=== PATIENT | male | born 1965 | race Caucasian/White ===

== ENCOUNTER → 2023-11-27 10:58 | Outpatient (REF) | payer OTHER, SELFPAY | LOC: RAD 10:58 | PROVIDERS: ATTENDING PHYSICIAN Nurse Practitioner Family | DX: M54.50 Low back pain, unspecified (principal) | CPT/HCPCS: 72110; 72220 ==

== ENCOUNTER → 2024-06-16 13:19 | Outpatient (REF) | payer OTHER, SELFPAY | LOC: RAD 13:19 | PROVIDERS: ATTENDING PHYSICIAN Nurse Practitioner Family | DX: D72.829 Elevated white blood cell count, unspecified (principal); R05.1 Acute cough; U09.9 Post COVID-19 condition, unspecified | CPT/HCPCS: 71046 ==

== ENCOUNTER 2025-02-06 05:21 | Emergency (ER) | payer OTHER, SELFPAY ==
[2025-02-06 05:30] VITALS: BP 138/86
[2025-02-06 05:50] LABS: % Basophils 0.8 % (0-2); % Eosinophils 0.8 % (0-6); % Immature Granulocytes 0.4 % (0-0.5); % Lymphocytes 19.7 % (20.5-51.1); % Monocytes 7.7 % (1.7-9.3); % Neutrophils 70.6 % (42.2-75.2); Absolute Basophils 0.1 10^3/uL (0-0.2); Absolute Eosinophils 0.1 10^3/uL (0-0.7); Absolute Immature Granulocytes 0.1 10^3/uL (0-0.05); Absolute Lymphocytes 2.8 10^3/uL (1.2-3.4); Absolute Monocytes 1.1 10^3/uL (0.1-0.6); Hematocrit 44.9 % (39.0-52.0); Hemoglobin 15.4 g/dL (13.0-18.0); Mean Corp Hgb Conc. 34.3 g/dL (33.0-37.0); Mean Corpuscular Hgb 33.3 pg (27.0-31.0); Mean Platelet Volume 10.1 fL (7.4-10.4); Nucleated Red Blood Cells % 0 % (-); Platelet Count 433 10^3/uL (130-400); Red Blood Cell Count 4.63 10^6/uL (4.70-6.10); Red Cell Dist. Width 12.9 % (11.5-14.5); White Blood Cell Count 14.2 10^3/uL (4.8-10.8)
[2025-02-06 05:54] VITALS: BMI 28.8
[2025-02-06 06:02] VITALS: BP 119/102
[2025-02-06 06:15] LABS: ALT (SGPT) 27 U/L (0-50); AST (SGOT) 36 U/L (17-59); Albumin 4.3 g/dl (3.5-5.0); Alkaline Phosphatase 108 U/L (38-126); Blood Urea Nitrogen 28 mg/dl (9-20); Calcium 9.6 mg/dl (8.4-10.2); Carbon Dioxide 27 mmol/L (22-30); Chloride 103 mmol/L (98-107); Estimated Creatinine Clearance 80 ml/min; Glucose 161 mg/dl (70-99); Potassium 4.8 mmol/L (3.5-5.1); Sodium 139 mmol/L (135-145); Total Bilirubin 0.9 mg/dl (0.2-1.3); eGFR > 60.00
[2025-02-06 06:16] VITALS: BP 126/87
[2025-02-06] MEDS: NSS 1000 IV (06:16)
[2025-02-06 06:24] LABS: Troponin I < 0.012 ng/ml
[2025-02-06 06:25] LABS: Lipase 122 U/L (23-300)
[2025-02-06 06:37] LABS: COVID-19 Antigen Negative (Negative)
[2025-02-06] MEDS: PROTONIX IV 40 MG IV (06:41)
[2025-02-06 07:00] VITALS: BP 132/83
--- NOTE | 2025-02-06 07:26 | ED.GENMED ---
History of Present Illness
General
Chief Complaint: Chest Pain
Source: patient and spouse
Time Seen by Provider: 02/06/25 06:04
History of Present Illness
History of Present Illness:
59-year-old male who presents with left upper chest pain. He states it feels like a little bit of tightness. He subsequently had vomiting and vomited about 5 times. States he has a little bit abdominal discomfort but for the most part feels
better. States the chest pain has been cough since about 7 PM last night. Has a history of neuroendocrine tumors. Has had a partial pancreatectomy. Patient denies fevers. Did have a bowel movement last night. No hemoptysis. No leg swelling.
No shortness of breath.
Past History
Past History
ED Past Medical History: HTN, NIDDM and Other (Neuroendocrine tumor of pancreas.); Negative CAD
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 Left upper lobe wedge resection February 2013 for removal of PET scan positive nodule.)
Social History
Tobacco: Non-smoker
Alcohol: Occasional
Personal:
Living: with family
Employment: Employed
Family History
Family History: CAD (father)
Phy Exam
Physical Exam
Physical Exam:
CONSTITUTIONAL Patient alert and oriented to person, place and time. Well-appearing. Vital signs reviewed.
HEAD atraumatic, normocephalic.
EYES eyelids normal to inspection, Extraocular muscles intact, Conjunctiva normal, Sclera normal.
NECK normal range of motion, Trachea midline, no jugular venous distention.
RESPIRATORY CHEST No respiratory distress noted, Chest expansion equal, Bilateral breath sounds clear. Does have mild left upper chest wall tenderness
CARDIOVASCULAR regular rate and rhythm, Heart sounds normal.
ABDOMEN mild diffuse tenderness, Bowel sounds normal. No distention.
BACK normal inspection, no obvious deformities
UPPER EXTREMITY range of motion normal, Motor strength normal, no cyanosis, no edema.
LOWER EXTREMITY range of motion normal, Motor strength normal, no cyanosis, no edema.
NEURO Speech normal, No focal motor deficits, Rafi coma scale 15, Memory normal, Cranial Nerves intact to screening exam.
SKIN skin warm, dry, and normal in color.
Scores
Heart Score for Chest Pain Patients
STEMI patient?: No
History: Slightly or Non-Suspicious
ECG: Normal
Age: >45 - <65 years
Risk Factors: 1 or 2 Risk Factors
Troponin: </= Normal Limit
Heart Score for Chest Pain Patients: 2
Heart Score Risk: 2.5% MACE over next 6 weeks
Course
Orders/Labs/Results
Orders:
Orders
02/06/25 05:24
Electrocardiogram (*1) Urgent
Reason for Study: Chest Pain
02/06/25 05:25
EKG- Treatment ONCE
02/06/25 05:40
Complete Blood Count/With Diff Urgent
Comprehensive Metabolic Panel Urgent
Lipase Urgent
Troponin I Urgent
02/06/25 06:12
Add On- LAB Urgent
Tests Added?: LIPASE
02/06/25 06:13
COVID-19 Antigen Urgent
Source: Nasal Swab
Influenza A+B Rapid Molecular Urgent
SAMREEN Source: Nasal Swab
Specimen Description:
02/06/25 06:15
0.9% Sodium Chloride 1000 ml [Nss] 1,000 ml IV BOLUS
02/06/25 06:27
Pantoprazole [Protonix IV] 40 mg IV NOW STA
02/06/25 06:28
Abdomen Xray - 1 View [CR Abdomen - 1 View] Urgent
Comment:
Reason For Exam: vomiting
CR Chest - 2 Views Urgent
Comment:
Reason For Exam: chest pain
02/06/25 09:01
Ketorolac [Toradol] 15 mg IV NOW STA
Abnormal Lab Results
02/06/25
05:40
WBC 14.2 H 10^3/uL
(4.8-10.8)
RBC 4.63 L 10^6/uL
(4.70-6.10)
MCV 97.0 H fL
(80.0-94.0)
MCH 33.3 H pg
(27.0-31.0)
Plt Count 433 H 10^3/uL
(130-400)
Abs Immat Gran (auto) 0.1 H 10^3/uL
(0-0.05)
Absolute Neuts (auto) 10.0 H 10^3/uL
(1.4-6.5)
Absolute Monos (auto) 1.1 H 10^3/uL
(0.1-0.6)
Lymphocytes % 19.7 L %
(20.5-51.1)
BUN 28 H mg/dl
(9-20)
Glucose 161 H mg/dl
(70-99)
02/06/25 05:40
02/06/25 05:40
Vital Signs
Initial and Last Documented VS:
Initial Vital Signs
Temp Pulse Resp BP Pulse Ox
98.1 F 70 24 138/86 98
02/06/25 05:30 02/06/25 05:30 02/06/25 05:30 02/06/25 05:30 02/06/25 05:30
Last Documented Vital Signs
Temp Pulse Resp BP Pulse Ox
98.5 F 54 13 132/83 95
02/06/25 05:54 02/06/25 09:00 02/06/25 09:00 02/06/25 07:00 02/06/25 09:00
MDM/Problems Addressed
Differential Diagnosis Includes:
Acute coronary syndrome, pneumothorax, pneumonia, shingles, PE, bowel obstruction, intra-abdominal process, electrolyte disturbance
MDM/Problems Addressed:
Chest pain, vomiting
*Pulse Oximetry
Patient hypoxic: no
*EKG
Interpreted by ED Provider?: Yes
Interpretation: abnormal
Rate: bradycardiac
Rhythm: sinus
Pillow: left axis deviation
QRS Pattern: right bundle branch block
Ischemia: non-specific ST changes
*Pound Keeper Interpretation
Rate: bradycardiac
Interpretation: normal
Rhythm: sinus
*Critical Care Note
Total Time (30-74mins, 75-104mins- exclusive of procedures): Not Applicable
Data Reviewed
Review of Other/Old Records Reveals: Operative Reports (Operative report reviewed from February 2013 patient had a limited left partial thoracotomy with wedge resection of left upper lobe)
Source: patient and spouse
Further Testing Considered But Not Given:
Consider CT of the abdomen but abdomen soft and nondistended.
Patient Management
Escalation/DeEscalation of care consider admission/obs:
Question whether symptoms could be GI in nature. Appears well. Did have vomiting. His troponin is negative despite symptoms since 7 PM last night. Otherwise appears well and okay for outpatient management. Counseled on reasons for return and
patient and spouse agree
Update Note
Update Note:
Patient notes he was doing yard work yesterday and suspects he may have injured his chest wall. He states he forgot to mention it and admits that it is tender when he presses.
ED Attending Note
-
Portions of this chart may have been created with voice recognition software.� Occasional wrong word or��sound alike� substitutions may have occurred due to the inherent limitations of voice recognition software.
Discharge Plan
Departure
Patient Disposition: Home (Routine Discharge)
Date of Disposition: 02/06/25
Time of Disposition: 09:02
Patient with high blood pressure during this ER visit?: No
Discharge Problem:
Chest pain
Instructions: Chest Pain PCP Follow Up
Prescriptions:
No Action
Creon 1 EACH capsule,delayed release(DR/EC)
1 tab PO DAILY PRN (Reason: digestion)
Patient Comments:
taken as needed
Rx Instructions:
6000
metformin 500 MG tablet extended release 24 hr
500 mg PO DAILY Qty: 0 0RF
losartan-hydrochlorothiazide 100-25 mg Tablet
1 tab PO DAILY
lanreotide 120 mg/0.5 mL Syringe
120 mg SC Q4W
pravastatin 10 mg Tablet
10 mg PO DAILY
empagliflozin 10 mg Tablet
10 mg PO DAILY
Referrals:
Luca Perera Jr., DO [Family Provider] -
Activity Restrictions/Additional Instructions:
Please see your doctor in follow-up in the next 2 days. Return [facility] for worsening symptoms, chest pain, shortness of breath, palpitations, intractable vomiting, abdominal pain or any other concerns.
Interventions
Interventions:
*Risk Screen - Suicide Last Done: 02/06/25 05:30
*General Assessment Last Done: 02/06/25 06:29
*Neglect/Abuse Screening Last Done: 02/06/25 05:30
*ED- Fall Risk Assessment Last Done: 02/06/25 06:29
*ED COVID-19 Vaccine History Last Done: 02/06/25 06:29
*Nursing Disposition Last Done: 02/06/25 09:45
ED- Cardiac Assessment Last Done: 02/06/25 06:29
Discharge Date and Time
Discharge Date/Time: 02/06/25 09:45
Print Language: CZECH
[2025-02-06] MEDS: TORADOL 15 MG IV (09:20)
== END 2025-02-06 09:45 | disposition home or self-care (01) ==
LOC: EMR 05:21
PROVIDERS: Student in an Organized Health Care Education/Training Program; EMERGENCY PHYSICIAN Emergency Medicine; FAMILY PHYSICIAN Family Medicine
DX: R07.89 Other chest pain (principal); R11.10 Vomiting, unspecified; I45.10 Unspecified right bundle-branch block; E11.9 Type 2 diabetes mellitus without complications; I10 Essential (primary) hypertension; Z90.411 Acquired partial absence of pancreas; Z11.52 Encounter for screening for COVID-19
CPT/HCPCS: 96374; 96375; 96361; 99285; 71046; 74018; 80053; 83690; 84484; 85025; 87502; 87811; 93005

== ENCOUNTER → 2025-03-08 08:57 | Outpatient (REF) | payer OTHER, SELFPAY | LOC: RCS 08:57 | PROVIDERS: ATTENDING PHYSICIAN Family Medicine | DX: R07.89 Other chest pain (principal) | CPT/HCPCS: 93017; 93350; Q9950 ==

== ENCOUNTER → 2025-05-04 11:44 | Outpatient (REF) | payer OTHER, SELFPAY | LOC: PAVMRI 11:44 | PROVIDERS: ATTENDING PHYSICIAN Internal Medicine Medical Oncology; FAMILY PHYSICIAN Family Medicine | DX: D3A.8 Other benign neuroendocrine tumors (principal) | CPT/HCPCS: 74183; A9575 ==